=== PATIENT | male | born 1965 | race Caucasian/White ===

== ENCOUNTER 2017-11-01 20:44 | Inpatient (IN) | payer OTHER, MEDICAID ==
[~2017-11-01] VITALS: Ht 175.3 cm; Wt 110.2 kg
[~2017-11-01 20:44] MED LIST: ALBU8.5H5 INH; AMOX-367 PO; ATEN25TA PO; ATENOLOL PO; CLON0.5T PO; CLOR3.75 PO; COUMADIN PO; ENOX100S4 SQ; ENOX120S5 SQ; FLUO20CA19 PO; GABA600T PO; GABA600T2 PO; HCTZ; HYDR-3237 PO; HYDR-3241 PO; HYDR12.53 PO; LEVO750T6 PO; LISI-167 PO; LISI2.5T PO; LISINOPRIL PO; LORA-446 PO; METH4TAB2 PO; MORP-52 PO; MULT-87 PO; ONDA4TAB10 PO; OXYC-302 PO; OXYC-307 PO; RANI150T4 PO; RANI150T8 PO; SULF-169 PO; TAMS0.4C2 PO; WARF5TAB PO; WARF5TAB7 PO; WARF7.5T PO
[2017-11-01] MEDS ORDERED: HYDROmorphone 2 MG/ML, 1ML ONE (21:12)
[2017-11-01 21:13] LABS: HEMOGLOBIN 14.2 g/dL (13.7-18.0); WHITE BLOOD COUNT 6.4 x10^3/uL (3.4-10)
[2017-11-01 21:22] LABS: BLOOD UREA NITROGEN 20 mg/dL (7-18)
[2017-11-01 21:26] LABS: IS PT STATUS REG ER OR PRE ER? YES
[2017-11-01] MEDS ORDERED: HYDROmorphone 1 MG/ML, 1ML IV ONE (21:30)
[2017-11-01] MEDS ORDERED: OMNIPAQUE 350 MG/ML, 100ML BOTTLE ONE (23:39)
[2017-11-02] MEDS ORDERED: RIVAROXABAN 15 MG TABLET PO STA
[2017-11-02 02:23] VITALS: BP 146/96
[2017-11-02] MEDS ORDERED: Enoxaparin 1 mg/kg protocol SQ SCH (05:00)
[2017-11-02] MEDS ORDERED: ONDANSETRON ODT 4 MG PO PRN (05:00)
[2017-11-02] MEDS ORDERED: ACETAMINOPHEN 325 MG TABLET PO PRN (05:00)
[2017-11-02] MEDS ORDERED: ONDANSETRON 2MG/ML, 2ML IVPush PRN (05:00)
[2017-11-02] MEDS ORDERED: PROMETHAZINE 25 MG/ML, 1ML IM PRN (05:00)
[2017-11-02 05:10] LABS: DAU SCREEN DISCLAIMER
[2017-11-02] MEDS ORDERED: SODIUM CHLORIDE 0.9% 1,000 ML IV SCH (05:30)
[2017-11-02 05:37] LABS: HEMATOCRIT 39.7 % (39.2-51.8); HEMOGLOBIN 13.4 g/dL (13.7-18.0); WHITE BLOOD COUNT 4.9 x10^3/uL (3.4-10)
[2017-11-02 05:46] LABS: BLOOD UREA NITROGEN 16 mg/dL (7-18)
[2017-11-02 05:53] LABS: ASPARTATE AMINO TRANSFERASE 114 U/L (15-37)
[2017-11-02 05:56] LABS: IS PT STATUS REG ER OR PRE ER? NO
[2017-11-02] MEDS: SODIUM CHLORIDE 0.9% 1,000 ML IV SCH ×2 (06:29→11:45)
[2017-11-02 07:20] VITALS: BP 172/115
[2017-11-02] MEDS ORDERED: NITROGLYCERIN 0.4 MG BOTTLE (25 TABS) SL PRN (13:30)
[2017-11-02] MEDS ORDERED: POLYETHYLENE GLYCOL 17 GM PACKET PO PRN (13:30)
[2017-11-02] MEDS ORDERED: LABETALOL 5MG/ML, 20ML IVPush PRN (13:30)
[2017-11-02 13:33] VITALS: BP 158/89
[2017-11-02 13:36] LABS: IS PT STATUS REG ER OR PRE ER? NO
[2017-11-02] MEDS: OXYcodone/APAP 10/325MG TABLET PO PRN ×2 (13:36→20:28)
[2017-11-02] MEDS: LISINOPRIL 10 MG TABLET PO SCH (13:36)
[2017-11-02] MEDS: FLUOXETINE 20 MG CAPSULE PO SCH (13:36)
[2017-11-02] MEDS: GABAPENTIN 300 MG CAPSULE PO PRN ×2 (13:37→20:28)
[2017-11-02] MEDS: TAMSULOSIN 0.4 MG CAP.ER.24H PO SCH (13:37)
[2017-11-02] MEDS: NICOTINE 21 MG/24 HR PATCH.TD24 TD SCH (13:37)
[2017-11-02] MEDS ORDERED: LORazepam 2 MG/ML, 1ML IV PRN ×5 (14:00)
[2017-11-02] MEDS: RIVAROXABAN 15 MG TABLET PO SCH (17:32)
[2017-11-02 20:42] VITALS: BP 132/83
[2017-11-03 01:11] VITALS: BP 137/83
[2017-11-03] MEDS: OXYcodone/APAP 10/325MG TABLET PO PRN ×3 (03:05→15:02)
[2017-11-03] MEDS: GABAPENTIN 300 MG CAPSULE PO PRN ×3 (03:05→15:02)
[2017-11-03 06:39] LABS: ASPARTATE AMINO TRANSFERASE 99 U/L (15-37); BLOOD UREA NITROGEN 17 mg/dL (7-18)
[2017-11-03 08:49] VITALS: BP 156/100
[2017-11-03] MEDS: TAMSULOSIN 0.4 MG CAP.ER.24H PO SCH (08:54)
[2017-11-03] MEDS: NICOTINE 21 MG/24 HR PATCH.TD24 TD SCH (08:54)
[2017-11-03] MEDS: RIVAROXABAN 15 MG TABLET PO SCH (08:54)
[2017-11-03] MEDS: LISINOPRIL 10 MG TABLET PO SCH (08:55)
[2017-11-03] MEDS: FLUOXETINE 20 MG CAPSULE PO SCH (08:55)
[2017-11-03] MEDS ORDERED: HYDROCHLOROTHIAZIDE 12.5 MG CAPSULE PO SCH (09:00)
[2017-11-03] MEDS ORDERED: RIVA15TA PO (14:40)
[2017-11-03 15:02] VITALS: BP 148/90
== END 2017-11-03 17:27 | DRG 300 ==
LOC: ED 20:48 → EDIP 11-02 00:01 → 5SO 11-02 02:16
PROVIDERS: ADMIT Surgery; ATTEND Surgery
DX: I83.015 Varicose veins of right lower extremity with ulcer other part of foot (principal); F11.20 Opioid dependence, uncomplicated; N17.9 Acute kidney failure, unspecified; E11.22 Type 2 diabetes mellitus with diabetic chronic kidney disease; E11.51 Type 2 diabetes mellitus with diabetic peripheral angiopathy without gangrene; E11.622 Type 2 diabetes mellitus with other skin ulcer; I82.513 Chronic embolism and thrombosis of femoral vein, bilateral; B19.20 Unspecified viral hepatitis C without hepatic coma; F10.10 Alcohol abuse, uncomplicated; F15.10 Other stimulant abuse, uncomplicated; F17.210 Nicotine dependence, cigarettes, uncomplicated; F20.9 Schizophrenia, unspecified; F32.9 Major depressive disorder, single episode, unspecified; F41.1 Generalized anxiety disorder; F43.10 Post-traumatic stress disorder, unspecified; G89.29 Other chronic pain; I12.9 Hypertensive chronic kidney disease with stage 1 through stage 4 chronic kidney disease, or unspecified chronic kidney disease; I83.025 Varicose veins of left lower extremity with ulcer other part of foot; L97.511 Non-pressure chronic ulcer of other part of right foot limited to breakdown of skin; L97.521 Non-pressure chronic ulcer of other part of left foot limited to breakdown of skin; I25.10 Atherosclerotic heart disease of native coronary artery without angina pectoris; J44.9 Chronic obstructive pulmonary disease, unspecified; K21.9 Gastro-esophageal reflux disease without esophagitis; N18.9 Chronic kidney disease, unspecified; Z59.0 Homelessness; Z79.01 Long term (current) use of anticoagulants; Z79.899 Other long term (current) drug therapy; Z91.14 Patient's other noncompliance with medication regimen; Z88.8 Allergy status to other drugs, medicaments and biological substances
CPT/HCPCS: 36415; 71010; 71275; 80048; 80053; 80307; 81003; 82040; 83735; 83880; 84100; 84484; 85025; 85610; 93005; 93970; 96374; J1170; Q9967; G0479; J7030

== ENCOUNTER 2018-02-22 14:09 | Emergency (ER) | payer OTHER, MEDICAID ==
[~2018-02-22 14:09] MED LIST changes: +RIVA15TA PO; +WARF-36 PO; -WARF5TAB7 PO
== END 2018-02-22 15:55 | disposition home or self-care (01) ==
LOC: ED 15:00
DX: Z02.9 Encounter for administrative examinations, unspecified (principal)

== ENCOUNTER 2018-02-22 14:14 | Inpatient (IN) | payer MEDICAID, OTHER ==
[~2018-02-22] VITALS: Ht 175.3 cm; Wt 104.8 kg
[~2018-02-22 14:14] MED LIST changes: +RANI150T23 PO; -RANI150T8 PO
[2018-02-22] MEDS ORDERED: MORPHINE SULFATE 4 MG/ML, 1ML ONE ×2 (14:55→17:04)
[2018-02-22] MEDS ORDERED: ONDANSETRON ODT 4 MG ONE (14:55)
[2018-02-22] MEDS ORDERED: AMPICILLIN/SULBACTAM 3 GM IM ONE (15:00)
[2018-02-22] MEDS ORDERED: PLEASE ENTER HEIGHT AND WEIGHT MC SCH (15:00)
[2018-02-22] MEDS ORDERED: SODIUM CHLORIDE FLUSH 10ML SYR IVF ONE (15:00)
[2018-02-22] MEDS ORDERED: ONDANSETRON ODT 4 MG PO ONE (15:00)
[2018-02-22] MEDS ORDERED: VANCOMYCIN PER PHARMACY MC PRN ×2 (15:00→16:30)
[2018-02-22] MEDS: MORPHINE SULFATE 4 MG/ML, 1ML IVPush PRN ×2 (15:20→17:10)
[2018-02-22 15:25] LABS: BASOPHILS # (AUTO) 0.03 x10^3/uL (0-0.1); BASOPHILS % (AUTO) 0 % (0-1); EOSINOPHILS # (AUTO) 0.19 x10^3/uL (0-0.4); EOSINOPHILS % (AUTO) 3 % (1-7); LYMPHOCYTES # (AUTO) 1.61 x10^3/uL (1-3.4); LYMPHOCYTES % (AUTO) 25 % (22-44); MD NO; MEAN CORPUSCULAR HEMOGLOBIN 28.8 pg (27.5-34.5); MEAN CORPUSCULAR HGB CONC 32.6 g/dL (33.2-36.2); MEAN CORPUSCULAR VOLUME 88.3 fL (81-97); MEAN PLATELET VOLUME 7.9 fL (7.4-10.4); MONOCYTES # (AUTO) 0.54 x10^3/uL (0.2-0.8); MONOCYTES % (AUTO) 8 % (2-9); NEUTROPHILS # (AUTO) 4.08 x10^3/uL (1.8-6.8); NEUTROPHILS % (AUTO) 63 % (42-75); PLATELET COUNT 231 x10^3/uL (130-400); RED BLOOD COUNT 4.37 x10^6/uL (4.38-5.82); RED CELL DISTRIBUTION WIDTH 17.1 % (9.4-14.8)
[2018-02-22 15:35] LABS: CALCIUM 8.6 mg/dL (8.5-10.1); CHLORIDE 106 mmol/L (98-107)
[2018-02-22 15:43] LABS: ALBUMIN 3.2 g/dL (3.4-5.0); ANION GAP 7 mmol/L (5-15); CREATININE 0.95 mg/dL (0.7-1.3)
[2018-02-22] MEDS ORDERED: DOCUSATE 100 MG CAPSULE PO PRN (16:30)
[2018-02-22] MEDS ORDERED: BISACODYL 10 MG SUPP PR PRN (16:30)
[2018-02-22] MEDS ORDERED: POLYETHYLENE GLYCOL 17 GM PACKET PO PRN (16:30)
[2018-02-22] MEDS ORDERED: ONDANSETRON ODT 4 MG PO PRN (16:30)
[2018-02-22] MEDS ORDERED: ACETAMINOPHEN 325 MG TABLET PO PRN (16:30)
[2018-02-22] MEDS: RIVAROXABAN 15 MG TABLET PO SCH (17:00)
[2018-02-22] MEDS: AMPICILLIN/SULBACTAM 3 GM in SODIUM CHLORIDE 0.9% 100 ML IV SCH (17:09)
[2018-02-22] MEDS ORDERED: RIVAROXABAN 10 MG TABLET ONE (17:28)
[2018-02-22 17:49] LABS: HCT (SEDRATE) 38.6 % (39.2-51.8)
[2018-02-22] MEDS ORDERED: LABETALOL 5MG/ML, 20ML ONE (19:06)
[2018-02-22] MEDS: LABETALOL 5MG/ML, 20ML IVPush PRN (19:13)
[2018-02-22] MEDS: NEED HEIGHT AND WEIGHT FOR VANCO DOSING MC SCH ×2 (20:30→21:30)
[2018-02-22] MEDS: SODIUM CHLORIDE FLUSH 10ML SYR IVF SCH (21:00)
[2018-02-22] MEDS ORDERED: PHARMACOKINETIC MONITORING MC PRN (22:00)
[2018-02-22] MEDS ORDERED: PHARMACOKINETIC CONSULTATION MC ONE (22:00)
[2018-02-22] MEDS: GABAPENTIN 300 MG CAPSULE PO PRN (22:18)
[2018-02-22] MEDS: VANCOMYCIN 2,000 MG in SODIUM CHLORIDE 0.9% 500 ML IV SCH (22:19)
[2018-02-22] MEDS ORDERED: LORazepam 1MG TABLET PO ONE (22:30)
[2018-02-22 23:13] VITALS: BP 138/103
[2018-02-22 23:33] LABS: AMPHETAMINE SCREEN, URINE Positive (Negative); BARBITURATE SCREEN, URINE Negative (Negative); BENZODIAZEPINE SCREEN, URINE Negative (Negative); CANNABINOID SCREEN, URINE Negative (Negative); COCAINE SCREEN, URINE Negative (Negative); METHADONE SCREEN, URINE Negative (Negative); OPIATE SCREEN, URINE Positive (Negative)
[2018-02-23] MEDS: AMPICILLIN/SULBACTAM 3 GM in SODIUM CHLORIDE 0.9% 100 ML IV SCH ×2 (01:06→09:17)
[2018-02-23] MEDS: LABETALOL 5MG/ML, 20ML IVPush PRN ×3 (01:06→11:11)
[2018-02-23 01:55] VITALS: BP 153/105
[2018-02-23 05:28] LABS: BASOPHILS # (AUTO) 0.03 x10^3/uL (0-0.1); BASOPHILS % (AUTO) 1 % (0-1); EOSINOPHILS # (AUTO) 0.19 x10^3/uL (0-0.4); EOSINOPHILS % (AUTO) 4 % (1-7); LYMPHOCYTES # (AUTO) 1.33 x10^3/uL (1-3.4); LYMPHOCYTES % (AUTO) 25 % (22-44); MD NO; MEAN CORPUSCULAR HEMOGLOBIN 28.7 pg (27.5-34.5); MEAN CORPUSCULAR HGB CONC 32.6 g/dL (33.2-36.2); MEAN CORPUSCULAR VOLUME 88.3 fL (81-97); MEAN PLATELET VOLUME 8.2 fL (7.4-10.4); MONOCYTES # (AUTO) 0.51 x10^3/uL (0.2-0.8); MONOCYTES % (AUTO) 10 % (2-9); NEUTROPHILS # (AUTO) 3.25 x10^3/uL (1.8-6.8); NEUTROPHILS % (AUTO) 61 % (42-75); PLATELET COUNT 246 x10^3/uL (130-400); RED BLOOD COUNT 4.43 x10^6/uL (4.38-5.82); RED CELL DISTRIBUTION WIDTH 16.9 % (9.4-14.8)
[2018-02-23 05:36] LABS: ANION GAP 7 mmol/L (5-15); CALCIUM 8.5 mg/dL (8.5-10.1); CHLORIDE 108 mmol/L (98-107)
[2018-02-23 05:37] LABS: CREATININE 1.11 mg/dL (0.7-1.3)
[2018-02-23] MEDS: NICOTINE 21 MG/24 HR PATCH.TD24 TD SCH (09:00)
[2018-02-23 09:15] VITALS: BP 180/116
[2018-02-23] MEDS: FLUOXETINE HCL 20 MG CAPSULE PO SCH (09:17)
[2018-02-23] MEDS: TAMSULOSIN 0.4 MG CAP.ER.24H PO SCH (09:18)
[2018-02-23] MEDS: HYDROCHLOROTHIAZIDE 12.5 MG CAPSULE PO SCH (09:18)
[2018-02-23] MEDS: GABAPENTIN 300 MG CAPSULE PO PRN (09:18)
[2018-02-23] MEDS: LISINOPRIL 20 MG TABLET PO SCH (09:18)
[2018-02-23] MEDS: RIVAROXABAN 15 MG TABLET PO SCH ×2 (09:18→17:11)
[2018-02-23] MEDS: SODIUM CHLORIDE FLUSH 10ML SYR IVF SCH ×2 (09:19→21:00)
[2018-02-23 11:14] VITALS: BP 182/116
[2018-02-23] MEDS: PIPERACILLIN/TAZO/PMX 3.375GM 50 ML IV SCH ×3 (11:43→20:56)
[2018-02-23] MEDS: MUPIROCIN OINT 2%, 22GM TP SCH (11:43)
[2018-02-23] MEDS ORDERED: GABAPENTIN 300 MG CAPSULE PO SCH (12:30)
[2018-02-23 14:50] VITALS: BP 160/116
[2018-02-23] MEDS ORDERED: GADOBUTROL 10 MMOL/10 ML PFS ONE (14:52)
[2018-02-23] MEDS: HYDROcodone/APAP 5/325 TABLET PO PRN (15:12)
[2018-02-23] MEDS ORDERED: LORazepam 1MG TABLET PO PRN ×3 (16:30)
[2018-02-23] MEDS ORDERED: IBUPROFEN 200 MG TABLET PO PRN (16:30)
[2018-02-23] MEDS: VANCOMYCIN 2,000 MG in SODIUM CHLORIDE 0.9% 500 ML IV SCH (17:07)
[2018-02-23 17:17] VITALS: BP 156/118
[2018-02-23] MEDS ORDERED: MORPHINE SULFATE 4 MG/ML, 1ML ONE (17:52)
[2018-02-23] MEDS: hydrALAzine 20 MG/ML, 1ML IV PRN (17:59)
[2018-02-23] MEDS: CARVEDILOL 3.125 MG TABLET PO SCH (18:00)
[2018-02-23] MEDS: GABAPENTIN 300 MG CAPSULE PO SCH ×2 (18:00→23:57)
[2018-02-23] MEDS: MORPHINE SULFATE 4 MG/ML, 1ML IVPush PRN (18:00)
[2018-02-23] MEDS: LORazepam 1MG TABLET PO PRN (18:00)
[2018-02-23 18:59] VITALS: BP 109/68
[2018-02-23] MEDS: ATORVASTATIN 40 MG TABLET PO SCH (23:57)
[2018-02-24 00:59] VITALS: BP 144/86
[2018-02-24] MEDS: PIPERACILLIN/TAZO/PMX 3.375GM 50 ML IV SCH ×2 (03:29→09:35)
[2018-02-24] MEDS: CARVEDILOL 3.125 MG TABLET PO SCH ×2 (04:50→17:11)
[2018-02-24] MEDS: HYDROcodone/APAP 5/325 TABLET PO PRN ×3 (04:50→22:55)
[2018-02-24] MEDS: LORazepam 1MG TABLET PO PRN (05:00)
[2018-02-24 08:11] VITALS: BP 143/92
[2018-02-24] MEDS: NICOTINE 21 MG/24 HR PATCH.TD24 TD SCH (09:00)
[2018-02-24] MEDS: RIVAROXABAN 15 MG TABLET PO SCH ×2 (09:36→17:11)
[2018-02-24] MEDS: FLUOXETINE HCL 20 MG CAPSULE PO SCH (09:36)
[2018-02-24] MEDS: GABAPENTIN 300 MG CAPSULE PO SCH ×3 (09:36→20:13)
[2018-02-24] MEDS: TAMSULOSIN 0.4 MG CAP.ER.24H PO SCH (09:36)
[2018-02-24] MEDS: SODIUM CHLORIDE FLUSH 10ML SYR IVF SCH ×2 (09:37→20:07)
[2018-02-24] MEDS: HYDROCHLOROTHIAZIDE 12.5 MG CAPSULE PO SCH (09:38)
[2018-02-24] MEDS: MORPHINE SULFATE 4 MG/ML, 1ML IVPush PRN (09:38)
[2018-02-24] MEDS: LISINOPRIL 20 MG TABLET PO SCH (09:39)
[2018-02-24] MEDS: MUPIROCIN OINT 2%, 22GM TP SCH (12:05)
[2018-02-24 18:41] VITALS: BP 183/129
[2018-02-24] MEDS: hydrALAzine 20 MG/ML, 1ML IV PRN (20:07)
[2018-02-24] MEDS: ATORVASTATIN 40 MG TABLET PO SCH (20:07)
[2018-02-24] MEDS: SULFAMETH./TRIMETHOPRIM DS 800MG/160MG TABLET PO SCH (20:07)
[2018-02-24 20:17] VITALS: BP 156/98
[2018-02-25 01:05] VITALS: BP 170/114
[2018-02-25] MEDS: HYDROcodone/APAP 5/325 TABLET PO PRN ×3 (01:22→22:41)
[2018-02-25] MEDS: LORazepam 1MG TABLET PO PRN ×2 (01:22→22:41)
[2018-02-25 03:00] VITALS: BP 150/92
[2018-02-25] MEDS: CARVEDILOL 3.125 MG TABLET PO SCH ×2 (06:00→17:51)
[2018-02-25 08:00] VITALS: BP 184/83
[2018-02-25] MEDS: RIVAROXABAN 15 MG TABLET PO SCH ×3 (08:00→17:51)
[2018-02-25] MEDS ORDERED: ALBUTEROL/IPRATROPIUM 2.5MG/0.5MG, 3 ML NPPB PRN (08:30)
[2018-02-25] MEDS: TAMSULOSIN 0.4 MG CAP.ER.24H PO SCH (09:00)
[2018-02-25] MEDS: MUPIROCIN OINT 2%, 22GM TP SCH (09:00)
[2018-02-25] MEDS: LISINOPRIL 20 MG TABLET PO SCH ×2 (09:00→12:29)
[2018-02-25] MEDS: NICOTINE 21 MG/24 HR PATCH.TD24 TD SCH (09:00)
[2018-02-25] MEDS: HYDROCHLOROTHIAZIDE 12.5 MG CAPSULE PO SCH ×2 (10:27→12:28)
[2018-02-25] MEDS: SULFAMETH./TRIMETHOPRIM DS 800MG/160MG TABLET PO SCH ×2 (10:27→22:41)
[2018-02-25] MEDS: FLUOXETINE HCL 20 MG CAPSULE PO SCH (10:28)
[2018-02-25] MEDS: SODIUM CHLORIDE FLUSH 10ML SYR IVF SCH ×2 (10:28→22:45)
[2018-02-25] MEDS: ACETAMINOPHEN 325 MG TABLET PO PRN ×2 (10:28→17:51)
[2018-02-25] MEDS: GABAPENTIN 300 MG CAPSULE PO SCH ×3 (10:28→22:40)
[2018-02-25 14:00] VITALS: BP 174/115
[2018-02-25] MEDS: LIDODERM 5% PATCH TD SCH (17:51)
[2018-02-25 18:23] VITALS: BP 173/101
[2018-02-25] MEDS: ATORVASTATIN 40 MG TABLET PO SCH (22:41)
[2018-02-26 03:23] VITALS: BP 164/107
[2018-02-26 04:15] VITALS: BP 176/101
[2018-02-26] MEDS: LABETALOL 5MG/ML, 20ML IVPush PRN (04:46)
[2018-02-26 05:55] VITALS: BP 141/86
[2018-02-26] MEDS: CARVEDILOL 3.125 MG TABLET PO SCH ×2 (06:09→17:36)
[2018-02-26 07:16] VITALS: BP 167/125
[2018-02-26] MEDS: GABAPENTIN 300 MG CAPSULE PO SCH ×3 (08:58→21:01)
[2018-02-26] MEDS: HYDROCHLOROTHIAZIDE 12.5 MG CAPSULE PO SCH (08:58)
[2018-02-26] MEDS: SULFAMETH./TRIMETHOPRIM DS 800MG/160MG TABLET PO SCH ×2 (08:59→21:01)
[2018-02-26] MEDS: LISINOPRIL 20 MG TABLET PO SCH (08:59)
[2018-02-26] MEDS: RIVAROXABAN 15 MG TABLET PO SCH ×2 (08:59→17:36)
[2018-02-26] MEDS: TAMSULOSIN 0.4 MG CAP.ER.24H PO SCH (08:59)
[2018-02-26] MEDS: FLUOXETINE HCL 20 MG CAPSULE PO SCH (08:59)
[2018-02-26] MEDS: SODIUM CHLORIDE FLUSH 10ML SYR IVF SCH ×2 (09:00→21:04)
[2018-02-26] MEDS: NICOTINE 21 MG/24 HR PATCH.TD24 TD SCH (09:00)
[2018-02-26] MEDS: MUPIROCIN OINT 2%, 22GM TP SCH (09:01)
[2018-02-26] MEDS: CYCLOBENZAPRINE 10 MG TABLET PO SCH ×2 (11:59→21:04)
[2018-02-26] MEDS ORDERED: KETOROLAC 30 MG/1 ML IVPush SCH (12:00)
[2018-02-26] MEDS: ACETAMINOPHEN 325 MG TABLET PO PRN (13:15)
[2018-02-26 13:30] VITALS: BP 160/117
[2018-02-26] MEDS ORDERED: KETOROLAC 10MG TABLET PO SCH (16:00)
[2018-02-26] MEDS: KETOROLAC 10MG TABLET PO SCH ×3 (17:36→23:24)
[2018-02-26] MEDS: LIDODERM 5% PATCH TD SCH (17:37)
[2018-02-26 20:38] VITALS: BP 144/84
[2018-02-26] MEDS: ATORVASTATIN 40 MG TABLET PO SCH (21:01)
[2018-02-26] MEDS: HYDROcodone/APAP 5/325 TABLET PO PRN (21:01)
[2018-02-26] MEDS: LORazepam 0.5MG TABLET PO PRN (21:01)
[2018-02-27 00:29] VITALS: BP 147/95
[2018-02-27] MEDS: LORazepam 0.5MG TABLET PO PRN (02:02)
[2018-02-27] MEDS: CARVEDILOL 3.125 MG TABLET PO SCH ×2 (06:32→18:21)
[2018-02-27 06:51] VITALS: BP 170/101
[2018-02-27] MEDS: NICOTINE 21 MG/24 HR PATCH.TD24 TD SCH (09:00)
[2018-02-27] MEDS: TAMSULOSIN 0.4 MG CAP.ER.24H PO SCH (09:33)
[2018-02-27] MEDS: GABAPENTIN 300 MG CAPSULE PO SCH ×3 (09:33→20:36)
[2018-02-27] MEDS: RIVAROXABAN 15 MG TABLET PO SCH ×2 (09:34→18:20)
[2018-02-27] MEDS: LISINOPRIL 20 MG TABLET PO SCH (09:34)
[2018-02-27] MEDS: FLUOXETINE HCL 20 MG CAPSULE PO SCH (09:34)
[2018-02-27] MEDS: HYDROCHLOROTHIAZIDE 12.5 MG CAPSULE PO SCH (09:34)
[2018-02-27] MEDS: KETOROLAC 10MG TABLET PO SCH ×3 (09:34→20:36)
[2018-02-27] MEDS: CYCLOBENZAPRINE 10 MG TABLET PO SCH ×2 (09:34→20:35)
[2018-02-27] MEDS: SODIUM CHLORIDE FLUSH 10ML SYR IVF SCH ×3 (09:35→20:39)
[2018-02-27] MEDS: MUPIROCIN OINT 2%, 22GM TP SCH (09:36)
[2018-02-27] MEDS: SULFAMETH./TRIMETHOPRIM DS 800MG/160MG TABLET PO SCH ×2 (09:47→20:36)
[2018-02-27 12:00] VITALS: BP 147/107
[2018-02-27] MEDS ORDERED: LISINOPRIL 20 MG TABLET PO ONE (12:30)
[2018-02-27] MEDS: HYDROcodone/APAP 5/325 TABLET PO PRN ×2 (14:03→21:59)
[2018-02-27] MEDS: LIDODERM 5% PATCH TD SCH (18:25)
[2018-02-27 18:59] VITALS: BP 149/98
[2018-02-27] MEDS: ATORVASTATIN 40 MG TABLET PO SCH (20:35)
[2018-02-28 01:14] VITALS: BP 134/83
[2018-02-28] MEDS: ACETAMINOPHEN 325 MG TABLET PO PRN (02:36)
[2018-02-28 05:25] VITALS: BP 163/88
[2018-02-28] MEDS: CARVEDILOL 3.125 MG TABLET PO SCH ×3 (05:25→18:16)
[2018-02-28 07:20] VITALS: BP 142/85
[2018-02-28] MEDS: RIVAROXABAN 15 MG TABLET PO SCH ×2 (08:00→16:06)
[2018-02-28] MEDS: SODIUM CHLORIDE FLUSH 10ML SYR IVF SCH ×2 (08:55→19:17)
[2018-02-28] MEDS: CYCLOBENZAPRINE 10 MG TABLET PO SCH ×2 (08:56→20:25)
[2018-02-28] MEDS: TAMSULOSIN 0.4 MG CAP.ER.24H PO SCH (08:57)
[2018-02-28] MEDS: GABAPENTIN 300 MG CAPSULE PO SCH ×3 (08:57→20:25)
[2018-02-28] MEDS: FLUOXETINE HCL 20 MG CAPSULE PO SCH (08:58)
[2018-02-28] MEDS: LISINOPRIL 20 MG TABLET PO SCH (08:58)
[2018-02-28] MEDS: SULFAMETH./TRIMETHOPRIM DS 800MG/160MG TABLET PO SCH ×2 (08:58→20:24)
[2018-02-28] MEDS: HYDROcodone/APAP 5/325 TABLET PO PRN ×2 (08:58→21:21)
[2018-02-28] MEDS: KETOROLAC 10MG TABLET PO SCH ×3 (08:58→20:24)
[2018-02-28] MEDS: NICOTINE 21 MG/24 HR PATCH.TD24 TD SCH (08:59)
[2018-02-28] MEDS: HYDROCHLOROTHIAZIDE 12.5 MG CAPSULE PO SCH (09:00)
[2018-02-28] MEDS: MUPIROCIN OINT 2%, 22GM TP SCH (09:05)
[2018-02-28 13:40] VITALS: BP 143/101
[2018-02-28] MEDS ORDERED: CALCIUM CARBONATE 500 MG TAB.CHEW ONE (15:56)
[2018-02-28] MEDS ORDERED: CALCIUM CARBONATE 500 MG TAB.CHEW PO PRN (16:00)
[2018-02-28] MEDS: LIDODERM 5% PATCH TD SCH (16:03)
[2018-02-28] MEDS ORDERED: ALPRazolam 1MG TABLET PO ONE (18:30)
[2018-02-28 19:16] VITALS: BP 128/86
[2018-02-28] MEDS: ATORVASTATIN 40 MG TABLET PO SCH (20:24)
[2018-03-01 01:34] VITALS: BP 123/78
[2018-03-01 05:01] VITALS: BP 127/86
[2018-03-01] MEDS: CARVEDILOL 3.125 MG TABLET PO SCH ×2 (05:23→17:32)
[2018-03-01 07:59] VITALS: BP 128/83
[2018-03-01] MEDS: NICOTINE 21 MG/24 HR PATCH.TD24 TD SCH (09:00)
[2018-03-01] MEDS: SODIUM CHLORIDE FLUSH 10ML SYR IVF SCH ×2 (09:00→20:48)
[2018-03-01] MEDS: LISINOPRIL 20 MG TABLET PO SCH (10:21)
[2018-03-01] MEDS: GABAPENTIN 300 MG CAPSULE PO SCH ×3 (10:21→20:49)
[2018-03-01] MEDS: KETOROLAC 10MG TABLET PO SCH ×3 (10:21→20:49)
[2018-03-01] MEDS: TAMSULOSIN 0.4 MG CAP.ER.24H PO SCH (10:22)
[2018-03-01] MEDS: RIVAROXABAN 15 MG TABLET PO SCH ×2 (10:22→17:32)
[2018-03-01] MEDS: FLUOXETINE HCL 20 MG CAPSULE PO SCH (10:22)
[2018-03-01] MEDS: HYDROCHLOROTHIAZIDE 12.5 MG CAPSULE PO SCH (10:22)
[2018-03-01] MEDS: SULFAMETH./TRIMETHOPRIM DS 800MG/160MG TABLET PO SCH ×2 (10:23→20:50)
[2018-03-01] MEDS: CYCLOBENZAPRINE 10 MG TABLET PO SCH ×2 (10:23→20:49)
[2018-03-01] MEDS: MUPIROCIN OINT 2%, 22GM TP SCH (10:23)
[2018-03-01] MEDS: HYDROcodone/APAP 5/325 TABLET PO PRN (11:10)
[2018-03-01] MEDS: ACETAMINOPHEN 325 MG TABLET PO PRN ×2 (13:05→20:49)
[2018-03-01] MEDS: LIDODERM 5% PATCH TD SCH (17:36)
[2018-03-01 17:48] VITALS: BP 145/82
[2018-03-01 20:13] VITALS: BP 146/94
[2018-03-01] MEDS: OLANZAPINE 5 MG TABLET PO SCH (20:49)
[2018-03-01] MEDS: ATORVASTATIN 40 MG TABLET PO SCH (20:56)
[2018-03-02 02:14] VITALS: BP 141/83
[2018-03-02] MEDS: CARVEDILOL 3.125 MG TABLET PO SCH ×2 (05:14→16:54)
[2018-03-02 07:47] VITALS: BP 131/88
[2018-03-02] MEDS: RIVAROXABAN 15 MG TABLET PO SCH ×3 (08:31→17:00)
[2018-03-02] MEDS: KETOROLAC 10MG TABLET PO SCH ×3 (08:31→21:09)
[2018-03-02] MEDS: LISINOPRIL 20 MG TABLET PO SCH (08:31)
[2018-03-02] MEDS: CYCLOBENZAPRINE 10 MG TABLET PO SCH ×2 (08:32→19:52)
[2018-03-02] MEDS: TAMSULOSIN 0.4 MG CAP.ER.24H PO SCH (08:32)
[2018-03-02] MEDS: SODIUM CHLORIDE FLUSH 10ML SYR IVF SCH (09:00)
[2018-03-02] MEDS: NICOTINE 21 MG/24 HR PATCH.TD24 TD SCH (09:00)
[2018-03-02] MEDS: MUPIROCIN OINT 2%, 22GM TP SCH (09:00)
[2018-03-02] MEDS: HYDROCHLOROTHIAZIDE 12.5 MG CAPSULE PO SCH (09:00)
[2018-03-02] MEDS: GABAPENTIN 300 MG CAPSULE PO SCH ×3 (09:00→21:09)
[2018-03-02] MEDS: SULFAMETH./TRIMETHOPRIM DS 800MG/160MG TABLET PO SCH ×2 (09:00→19:52)
[2018-03-02] MEDS: ACETAMINOPHEN 325 MG TABLET PO PRN ×2 (11:16→21:10)
[2018-03-02 14:00] VITALS: BP 148/78
[2018-03-02] MEDS: LIDODERM 5% PATCH TD SCH ×2 (16:54→17:00)
[2018-03-02 19:02] VITALS: BP 152/92
[2018-03-02] MEDS: OLANZAPINE 5 MG TABLET PO SCH (19:52)
[2018-03-02] MEDS: ATORVASTATIN 40 MG TABLET PO SCH (19:52)
[2018-03-03 05:10] VITALS: BP 153/86
[2018-03-03] MEDS: CARVEDILOL 3.125 MG TABLET PO SCH ×2 (05:14→17:20)
[2018-03-03] MEDS: NICOTINE 21 MG/24 HR PATCH.TD24 TD SCH (09:00)
[2018-03-03] MEDS: MUPIROCIN OINT 2%, 22GM TP SCH (09:00)
[2018-03-03 09:22] VITALS: BP 142/91
[2018-03-03] MEDS: RIVAROXABAN 15 MG TABLET PO SCH ×2 (09:23→17:20)
[2018-03-03] MEDS: LISINOPRIL 20 MG TABLET PO SCH (09:24)
[2018-03-03] MEDS: GABAPENTIN 300 MG CAPSULE PO SCH ×3 (09:24→21:14)
[2018-03-03] MEDS: TAMSULOSIN 0.4 MG CAP.ER.24H PO SCH (09:25)
[2018-03-03] MEDS: CYCLOBENZAPRINE 10 MG TABLET PO SCH ×2 (09:25→21:14)
[2018-03-03] MEDS: SULFAMETH./TRIMETHOPRIM DS 800MG/160MG TABLET PO SCH ×2 (09:26→21:13)
[2018-03-03] MEDS: HYDROcodone/APAP 5/325 TABLET PO PRN ×2 (14:58→21:54)
[2018-03-03 15:00] VITALS: BP 141/78
[2018-03-03] MEDS: LIDODERM 5% PATCH TD SCH (16:40)
[2018-03-03 19:57] VITALS: BP 109/70
[2018-03-03] MEDS: ATORVASTATIN 40 MG TABLET PO SCH (21:14)
[2018-03-03] MEDS: OLANZAPINE 5 MG TABLET PO SCH (21:15)
[2018-03-04 02:00] VITALS: BP 145/80
[2018-03-04] MEDS: CARVEDILOL 3.125 MG TABLET PO SCH ×2 (06:00→17:03)
[2018-03-04 06:37] VITALS: BP 126/76
[2018-03-04] MEDS: LISINOPRIL 20 MG TABLET PO SCH (08:25)
[2018-03-04] MEDS: TAMSULOSIN 0.4 MG CAP.ER.24H PO SCH (08:26)
[2018-03-04] MEDS: CYCLOBENZAPRINE 10 MG TABLET PO SCH (08:26)
[2018-03-04] MEDS: RIVAROXABAN 15 MG TABLET PO SCH ×2 (08:26→17:02)
[2018-03-04] MEDS: GABAPENTIN 300 MG CAPSULE PO SCH ×3 (08:26→20:46)
[2018-03-04] MEDS: MUPIROCIN OINT 2%, 22GM TP SCH (08:27)
[2018-03-04 13:22] VITALS: BP 130/83
[2018-03-04] MEDS ORDERED: HYDROcodone/APAP 5/325 TABLET PO PRN (17:00)
[2018-03-04] MEDS: LIDODERM 5% PATCH TD SCH (17:02)
[2018-03-04 19:39] VITALS: BP 130/80
[2018-03-04] MEDS: ACETAMINOPHEN 325 MG TABLET PO PRN (20:47)
[2018-03-04] MEDS: OLANZAPINE 5 MG TABLET PO SCH (20:47)
[2018-03-05 02:00] VITALS: BP 135/86
[2018-03-05] MEDS: CARVEDILOL 3.125 MG TABLET PO SCH (06:00)
[2018-03-05 07:11] VITALS: BP 172/104
[2018-03-05] MEDS ORDERED: RIVAROXABAN 20 MG TABLET PO SCH (08:00)
[2018-03-05] MEDS ORDERED: RIVA20TA PO (08:27)
[2018-03-05] MEDS ORDERED: LISI-170 PO (08:27)
[2018-03-05] MEDS ORDERED: MUPI22OI2 TP (08:27)
[2018-03-05] MEDS ORDERED: OLAN5TAB9 PO (08:27)
[2018-03-05 08:30] VITALS: BP 136/87
[2018-03-05] MEDS: MUPIROCIN OINT 2%, 22GM TP SCH (08:30)
[2018-03-05] MEDS: GABAPENTIN 300 MG CAPSULE PO SCH (08:30)
[2018-03-05] MEDS: LISINOPRIL 20 MG TABLET PO SCH (08:39)
[2018-03-05] MEDS: TAMSULOSIN 0.4 MG CAP.ER.24H PO SCH (08:39)
[2018-03-05] MEDS ORDERED: CARVEDILOL 3.125 MG TABLET PO SCH (09:00)
== END 2018-03-05 12:55 | disposition home or self-care (01) | DRG 602 ==
LOC: ED 14:16 → EDIP 16:16 → 4WST 20:22
PROVIDERS: ADMIT Internal Medicine; ATTEND Internal Medicine
DX: L03.116 Cellulitis of left lower limb (principal); I26.99 Other pulmonary embolism without acute cor pulmonale; I50.43 Acute on chronic combined systolic (congestive) and diastolic (congestive) heart failure; D68.59 Other primary thrombophilia; E11.42 Type 2 diabetes mellitus with diabetic polyneuropathy; E11.622 Type 2 diabetes mellitus with other skin ulcer; E44.1 Mild protein-calorie malnutrition; F23 Brief psychotic disorder; L97.929 Non-pressure chronic ulcer of unspecified part of left lower leg with unspecified severity; I82.532 Chronic embolism and thrombosis of left popliteal vein; I87.2 Venous insufficiency (chronic) (peripheral); I11.0 Hypertensive heart disease with heart failure; L03.115 Cellulitis of right lower limb; F17.210 Nicotine dependence, cigarettes, uncomplicated; I25.10 Atherosclerotic heart disease of native coronary artery without angina pectoris; K21.9 Gastro-esophageal reflux disease without esophagitis; J44.9 Chronic obstructive pulmonary disease, unspecified; L30.9 Dermatitis, unspecified; H91.90 Unspecified hearing loss, unspecified ear; G89.29 Other chronic pain; F41.1 Generalized anxiety disorder; F15.10 Other stimulant abuse, uncomplicated; D64.9 Anemia, unspecified; F19.10 Other psychoactive substance abuse, uncomplicated; M19.90 Unspecified osteoarthritis, unspecified site; M54.9 Dorsalgia, unspecified; M54.2 Cervicalgia; Z91.19 Patient's noncompliance with other medical treatment and regimen; Z87.442 Personal history of urinary calculi; Z59.0 Homelessness; Z86.711 Personal history of pulmonary embolism; Z91.14 Patient's other noncompliance with medication regimen; Z79.01 Long term (current) use of anticoagulants; Z76.5 Malingerer [conscious simulation]; Z88.8 Allergy status to other drugs, medicaments and biological substances; Z68.34 Body mass index [BMI] 34.0-34.9, adult
CPT/HCPCS: 36415; 80048; 80307; 82040; 83880; 85025; 85651; 86480; 87070; 87077; 87147; 87186; 87205; 93306; 93922; 93970; 94640; 96374; 96376; A9585; J0295; J2543; J3370; J7620; 92523-GN; J0360; J7040

== ENCOUNTER 2018-04-20 19:57 | Emergency (ER) | payer MEDICAID ==
[~2018-04-20] VITALS: Ht 175.3 cm; Wt 87.0 kg
[~2018-04-20 19:57] MED LIST changes: +LISI-170 PO; +MUPI22OI2 TP; +OLAN5TAB9 PO; +RIVA20TA PO
[2018-04-20 21:49] LABS: BASOPHILS # (AUTO) 0.03 x10^3/uL (0-0.1); BASOPHILS % (AUTO) 1 % (0-1); EOSINOPHILS # (AUTO) 0.32 x10^3/uL (0-0.4); EOSINOPHILS % (AUTO) 5 % (1-7); LYMPHOCYTES # (AUTO) 1.39 x10^3/uL (1-3.4); LYMPHOCYTES % (AUTO) 22 % (22-44); MD NO; MEAN CORPUSCULAR HEMOGLOBIN 28.8 pg (27.5-34.5); MEAN CORPUSCULAR HGB CONC 32.2 g/dL (33.2-36.2); MEAN CORPUSCULAR VOLUME 89.4 fL (81-97); MEAN PLATELET VOLUME 8.3 fL (7.4-10.4); MONOCYTES # (AUTO) 0.59 x10^3/uL (0.2-0.8); MONOCYTES % (AUTO) 10 % (2-9); NEUTROPHILS # (AUTO) 3.86 x10^3/uL (1.8-6.8); NEUTROPHILS % (AUTO) 63 % (42-75); PLATELET COUNT 222 x10^3/uL (130-400); RED BLOOD COUNT 4.31 x10^6/uL (4.38-5.82); RED CELL DISTRIBUTION WIDTH 19.1 % (9.4-14.8)
[2018-04-20 22:01] LABS: ALBUMIN 3.4 g/dL (3.4-5.0); ANION GAP 8 mmol/L (5-15); CALCIUM 8.6 mg/dL (8.5-10.1); CHLORIDE 109 mmol/L (98-107); CREATININE 1.25 mg/dL (0.7-1.3)
[2018-04-20] MEDS ORDERED: SULFAMETH./TRIMETHOPRIM DS 800MG/160MG TABLET PO ONE (22:30)
[2018-04-20] MEDS ORDERED: SULFAMETH./TRIMETHOPRIM DS 800MG/160MG TABLET ONE (22:32)
[2018-04-20 22:44] VITALS: BP 153/86
== END 2018-04-20 22:46 | disposition home or self-care (01) ==
LOC: ED 22:39
DX: I83.12 Varicose veins of left lower extremity with inflammation (principal); I83.11 Varicose veins of right lower extremity with inflammation; L03.115 Cellulitis of right lower limb; I10 Essential (primary) hypertension; E11.9 Type 2 diabetes mellitus without complications; J44.9 Chronic obstructive pulmonary disease, unspecified; I25.10 Atherosclerotic heart disease of native coronary artery without angina pectoris; K21.9 Gastro-esophageal reflux disease without esophagitis; F41.1 Generalized anxiety disorder; M54.9 Dorsalgia, unspecified; G89.29 Other chronic pain; Z59.0 Homelessness
CPT/HCPCS: 36415; 80048; 82040; 85025; 99285

== ENCOUNTER 2018-08-15 18:29 | Inpatient (IN) | payer MEDICAID ==
[~2018-08-15] VITALS: Ht 170.2 cm; Wt 106.5 kg
[2018-08-15 19:44] LABS: ALANINE AMINOTRANSFERASE 21 U/L (12-78); ALBUMIN 3.4 g/dL (3.4-5.0); ANION GAP 10 mmol/L (5-15); CALCIUM 8.3 mg/dL (8.5-10.1); CHLORIDE 103 mmol/L (98-107); CREATININE 1.04 mg/dL (0.7-1.3); SALICYLATE LEVEL 1.8 mg/dL (2.8-20.0)
[2018-08-15 19:46] LABS: ALKALINE PHOSPHATASE 76 U/L (45-117); BILIRUBIN,TOTAL 0.6 mg/dL (0.2-1.0); TOTAL PROTEIN 7.8 g/dL (6.4-8.2)
[2018-08-15 19:49] LABS: ACETAMINOPHEN < 2 mcg/mL (10-30)
[2018-08-15] MEDS ORDERED: ACETAMINOPHEN 325 MG TABLET ONE (19:49)
[2018-08-15 19:55] LABS: MD YES; MEAN CORPUSCULAR HEMOGLOBIN 30.8 pg (27.5-34.5); MEAN CORPUSCULAR HGB CONC 33.1 g/dL (33.2-36.2); MEAN CORPUSCULAR VOLUME 92.9 fL (81-97); MEAN PLATELET VOLUME 8.3 fL (7.4-10.4); PLATELET COUNT 172 x10^3/uL (130-400); RED BLOOD COUNT 4.64 x10^6/uL (4.38-5.82); RED CELL DISTRIBUTION WIDTH 17.1 % (9.4-14.8)
[2018-08-15 19:57] LABS: BAND#(MANUAL) 1.64 x10^3/uL; BANDS%(MANUAL) 8 % (0-7); SEG#(MANUAL) 17.84 x10^3/uL (1.8-6.8); SEGS% (MANUAL) 87 % (42-75)
[2018-08-15 19:58] LABS: LYMPH#(MANUAL) 0.62 x10^3/uL (1-3.4); LYMPHS% (MANUAL) 3 % (22-44); MONOS#(MANUAL) 0.41 x10^3/uL (0.3-2.7); MONOS% (MANUAL) 2 % (2-9)
[2018-08-15 19:59] LABS: HYPOCHROMIA 1+; OVALOCYTES 1+; PMNS WITH VACUOLES 1+
[2018-08-15 20:00] LABS: <PLATELET ESTIMATE> ADEQUATE; <PLT MORPHOLOGY> NORMAL PLT MORPH
[2018-08-15] MEDS ORDERED: ACETAMINOPHEN 325 MG TABLET PO ONE (20:00)
[2018-08-15 20:23] LABS: MICROSCOPIC AUTO
[2018-08-15 20:24] LABS: CULTURE INDICATED? NO
[2018-08-15] MEDS ORDERED: SODIUM CHLORIDE 0.9% 1,000ML IVBOLUS ONE (20:30)
[2018-08-15] MEDS ORDERED: CEFTRIAXONE PMX 1GM/50ML 50 ML ONE (20:36)
[2018-08-15 20:37] LABS: AMPHETAMINE SCREEN, URINE Positive (Negative); BARBITURATE SCREEN, URINE Negative (Negative); BENZODIAZEPINE SCREEN, URINE Negative (Negative); CANNABINOID SCREEN, URINE Positive (Negative); COCAINE SCREEN, URINE Negative (Negative); METHADONE SCREEN, URINE Negative (Negative); OPIATE SCREEN, URINE Negative (Negative)
[2018-08-15] MEDS ORDERED: CEFTRIAXONE 1,000 MG in SODIUM CHLORIDE 0.9% 50 ML IVPB ONE (21:00)
[2018-08-15] MEDS ORDERED: LORazepam 2 MG/ML, 1ML IVPush ONE (21:30)
[2018-08-15] MEDS ORDERED: hydrALAzine 20 MG/ML, 1ML IVPush PRN (21:30)
[2018-08-15] MEDS ORDERED: THIAMINE 100 MG in SODIUM CHLORIDE 0.9% 50 ML IVPB ONE (21:30)
[2018-08-15] MEDS ORDERED: POLYETHYLENE GLYCOL 17 GM PACKET PO PRN (21:30)
[2018-08-15] MEDS ORDERED: BISACODYL 10 MG SUPP PR PRN (21:30)
[2018-08-15] MEDS ORDERED: ONDANSETRON 2MG/ML, 2ML IVPush PRN (21:30)
[2018-08-15] MEDS ORDERED: DOCUSATE 100 MG CAPSULE PO PRN (21:30)
[2018-08-15] MEDS ORDERED: ONDANSETRON ODT 4 MG PO PRN (21:30)
[2018-08-15] MEDS ORDERED: LABETALOL 5MG/ML, 20ML IVPush PRN (21:30)
[2018-08-15] MEDS ORDERED: SODIUM CHLORIDE FLUSH 10ML SYR IVF PRN (21:30)
[2018-08-15] MEDS ORDERED: PROMETHAZINE 25 MG/ML, 1ML IM PRN (21:30)
[2018-08-15 22:00] VITALS: BP 128/76
[2018-08-15] MEDS ORDERED: VANCOMYCIN PER PHARMACY MC PRN (22:00)
[2018-08-15] MEDS ORDERED: VANCOMYCIN PMX 1GM/200ML 200 ML IV ONE (22:00)
[2018-08-15] MEDS ORDERED: SODIUM CHLORIDE 0.9% 1,000 ML IV SCH (22:00)
[2018-08-15 22:18] LABS: FREE T4 (FREE THYROXINE) 1.04 ng/dL (0.76-1.46); THYROID STIMULATING HORMONE 0.751 mIU/L (0.358-3.740)
[2018-08-15 22:58] LABS: HEMOGLOBIN A1C 5.6 % (4.2-6.3)
[2018-08-15] MEDS ORDERED: VANCOMYCIN 2,000 MG in SODIUM CHLORIDE 0.9% 500 ML IV ONE (23:00)
[2018-08-15] MEDS: AMPICILLIN/SULBACTAM 3 GM in SODIUM CHLORIDE 0.9% 100 ML IV SCH (23:42)
[2018-08-16 00:19] VITALS: BP 119/67
[2018-08-16] MEDS: METOPROLOL TARTRATE 25 MG TABLET PO SCH ×2 (04:59→18:38)
[2018-08-16 05:22] LABS: MEAN CORPUSCULAR HEMOGLOBIN 31.4 pg (27.5-34.5); MEAN CORPUSCULAR HGB CONC 33.6 g/dL (33.2-36.2); MEAN CORPUSCULAR VOLUME 93.3 fL (81-97); MEAN PLATELET VOLUME 8.4 fL (7.4-10.4); PLATELET COUNT 201 x10^3/uL (130-400); RED BLOOD COUNT 4.46 x10^6/uL (4.38-5.82); RED CELL DISTRIBUTION WIDTH 17.2 % (9.4-14.8)
[2018-08-16 05:34] LABS: CHLORIDE 105 mmol/L (98-107)
[2018-08-16 05:48] LABS: ALANINE AMINOTRANSFERASE 18 U/L (12-78); ALBUMIN 2.9 g/dL (3.4-5.0); ALKALINE PHOSPHATASE 64 U/L (45-117); ANION GAP 8 mmol/L (5-15); BILIRUBIN,TOTAL 0.9 mg/dL (0.2-1.0); CALCIUM 8.1 mg/dL (8.5-10.1); CHOL/HDL RATIO 1.3; CHOLESTEROL, TOTAL 92 mg/dL (140-239); CREATININE 1.03 mg/dL (0.7-1.3); HDL CHOL % 79 % (26-37); HDL CHOLESTEROL (DIRECT) 73 mg/dL (40-60); LDL CHOLESTEROL,CALCULATED 9 mg/dL (54-169); LDL/HDL RATIO 0.1 (0.5-3.0); TOTAL PROTEIN 7.1 g/dL (6.4-8.2); TRIGLYCERIDES 50 mg/dL (50-200); VLDL CHOLESTEROL 10 mg/dL (0-25)
[2018-08-16 06:24] LABS: MD YES
[2018-08-16 06:27] LABS: BAND#(MANUAL) 4.73 x10^3/uL; BANDS%(MANUAL) 18 % (0-7); LYMPH#(MANUAL) 1.32 x10^3/uL (1-3.4); LYMPHS% (MANUAL) 5 % (22-44); METAMYELOCYTES# (MANUAL) 0.53 x10^3/uL (0-0); METAMYELOCYTES% (MANUAL) 2 % (0-1); MONOS#(MANUAL) 0.53 x10^3/uL (0.3-2.7); MONOS% (MANUAL) 2 % (2-9); SEGS% (MANUAL) 73 % (42-75)
[2018-08-16 06:28] LABS: <PLATELET ESTIMATE> ADEQUATE; <PLT MORPHOLOGY> NORMAL PLT MORPH
[2018-08-16] MEDS: AMPICILLIN/SULBACTAM 3 GM in SODIUM CHLORIDE 0.9% 100 ML IV SCH ×3 (06:34→18:38)
[2018-08-16 07:38] VITALS: BP 120/72
[2018-08-16] MEDS: RIVAROXABAN 20 MG TABLET PO SCH (08:32)
[2018-08-16] MEDS: LOSARTAN 25MG TABLET PO SCH (08:32)
[2018-08-16] MEDS: ACETAMINOPHEN 325 MG TABLET PO PRN (08:33)
[2018-08-16] MEDS: VANCOMYCIN 2,000 MG in SODIUM CHLORIDE 0.9% 500 ML IV SCH (14:28)
[2018-08-16 16:09] VITALS: BP 127/76
[2018-08-16 19:47] VITALS: BP 144/82
[2018-08-17] MEDS: AMPICILLIN/SULBACTAM 3 GM in SODIUM CHLORIDE 0.9% 100 ML IV SCH ×4 (00:06→19:09)
[2018-08-17] MEDS: VANCOMYCIN 2,000 MG in SODIUM CHLORIDE 0.9% 500 ML IV SCH ×3 (02:17→17:18)
[2018-08-17 05:38] VITALS: BP 172/92
[2018-08-17] MEDS: METOPROLOL TARTRATE 25 MG TABLET PO SCH ×3 (05:41→17:18)
[2018-08-17] MEDS: RIVAROXABAN 20 MG TABLET PO SCH ×3 (05:41→05:48)
[2018-08-17] MEDS: LOSARTAN 25MG TABLET PO SCH (09:08)
[2018-08-17 13:30] VITALS: BP 174/100
[2018-08-17 18:28] VITALS: BP 172/106
[2018-08-17] MEDS: ACETAMINOPHEN 325 MG TABLET PO PRN (19:53)
[2018-08-17 23:45] VITALS: BP 136/74
[2018-08-18] MEDS ORDERED: QUETIAPINE 25MG TABLET PO ONE (01:00)
[2018-08-18] MEDS: AMPICILLIN/SULBACTAM 3 GM in SODIUM CHLORIDE 0.9% 100 ML IV SCH ×2 (01:09→06:31)
[2018-08-18] MEDS: VANCOMYCIN 2,000 MG in SODIUM CHLORIDE 0.9% 500 ML IV SCH (02:30)
[2018-08-18] MEDS: METOPROLOL TARTRATE 25 MG TABLET PO SCH (06:00)
[2018-08-18] MEDS: LOSARTAN 25MG TABLET PO SCH (08:19)
[2018-08-18] MEDS: RIVAROXABAN 20 MG TABLET PO SCH (08:19)
[2018-08-18 08:20] VITALS: BP 191/116
== END 2018-08-18 10:59 | disposition left against medical advice (07) | DRG 871 ==
LOC: ED 20:55 → EDIP 21:07 → 3NE 22:09
PROVIDERS: ADMIT Internal Medicine; ATTEND Internal Medicine
DX: A41.9 Sepsis, unspecified organism (principal); E43 Unspecified severe protein-calorie malnutrition; G93.41 Metabolic encephalopathy; D68.59 Other primary thrombophilia; I50.42 Chronic combined systolic (congestive) and diastolic (congestive) heart failure; L03.116 Cellulitis of left lower limb; B95.1 Streptococcus, group B, as the cause of diseases classified elsewhere; D64.9 Anemia, unspecified; Z68.36 Body mass index [BMI] 36.0-36.9, adult; F12.10 Cannabis abuse, uncomplicated; F15.10 Other stimulant abuse, uncomplicated; F17.200 Nicotine dependence, unspecified, uncomplicated; F41.1 Generalized anxiety disorder; F43.10 Post-traumatic stress disorder, unspecified; E11.42 Type 2 diabetes mellitus with diabetic polyneuropathy; H91.90 Unspecified hearing loss, unspecified ear; I11.0 Hypertensive heart disease with heart failure; I25.10 Atherosclerotic heart disease of native coronary artery without angina pectoris; I87.2 Venous insufficiency (chronic) (peripheral); J44.9 Chronic obstructive pulmonary disease, unspecified; K21.9 Gastro-esophageal reflux disease without esophagitis; Z53.21 Procedure and treatment not carried out due to patient leaving prior to being seen by health care provider; R32 Unspecified urinary incontinence; Z59.0 Homelessness; Z79.01 Long term (current) use of anticoagulants; Z86.711 Personal history of pulmonary embolism; Z86.718 Personal history of other venous thrombosis and embolism; Z87.442 Personal history of urinary calculi; Z87.820 Personal history of traumatic brain injury; Z91.14 Patient's other noncompliance with medication regimen; Z88.8 Allergy status to other drugs, medicaments and biological substances
CPT/HCPCS: 36415; 71045; 80053; 80061; 80307; 80329; 81001; 82140; 83036; 83605; 83735; 84439; 84443; 85025; 87040; 87070; 87077; 87147; 87181; 87186; 87205; 93005; G0378; J0295; J0696; J3370; G0480; J7030; J7040

== ENCOUNTER 2019-04-25 14:17 | Emergency (ER) | payer MEDICAID ==
[~2019-04-25] VITALS: Ht 172.7 cm; Wt 91.0 kg
[~2019-04-25 14:17] MED LIST changes: -GABA600T2 PO; +GABA600T7 PO; +HYDR12.517 PO; -HYDR12.53 PO
--- NOTE | 2019-04-25 14:25 | NUR ---
NO ANSWER IN LOBBY AT [id number]
[2019-04-25 15:49] LABS: BASOPHILS # (AUTO) 0.04 x10^3/uL (0-0.1); BASOPHILS % (AUTO) 1 % (0-1); EOSINOPHILS # (AUTO) 0.27 x10^3/uL (0-0.4); EOSINOPHILS % (AUTO) 4 % (1-7); LYMPHOCYTES % (AUTO) 25 % (22-44); MD NO; MEAN CORPUSCULAR HEMOGLOBIN 31.6 pg (27.5-34.5); MEAN CORPUSCULAR HGB CONC 32.2 g/dL (33.2-36.2); MEAN CORPUSCULAR VOLUME 98.1 fL (81-97); MEAN PLATELET VOLUME 8.6 fL (7.4-10.4); MONOCYTES # (AUTO) 0.56 x10^3/uL (0.2-0.8); MONOCYTES % (AUTO) 8 % (2-9); NEUTROPHILS # (AUTO) 4.49 x10^3/uL (1.8-6.8); NEUTROPHILS % (AUTO) 63 % (42-75); PLATELET COUNT 195 x10^3/uL (130-400); RED BLOOD COUNT 4.78 x10^6/uL (4.38-5.82); RED CELL DISTRIBUTION WIDTH 14.6 % (9.4-14.8)
[2019-04-25 15:57] LABS: ALBUMIN 3.6 g/dL (3.4-5.0); ANION GAP 4 mmol/L (5-15); CALCIUM 8.6 mg/dL (8.5-10.1); CHLORIDE 106 mmol/L (98-107)
[2019-04-25 16:00] LABS: ALANINE AMINOTRANSFERASE 97 U/L (12-78); ALKALINE PHOSPHATASE 83 U/L (45-117); BILIRUBIN,TOTAL 0.8 mg/dL (0.2-1.0)
--- NOTE | 2019-04-25 16:00 | NUR ---
LEFT LOWER LEG SWELLING WITH LESION. VASCULAR STUDY BEING PERFORMED AT BEDSIDE
--- NOTE | 2019-04-25 16:37 | NUR ---
WOUND CANDY PACKER USED TO CLEAN WOUND LEFT LOWER EXTREMITY WITH XEROFORM PLACED OVER LESION AND THEN OPTIFOAM DRESSING OVER THAT.
--- NOTE | 2019-04-25 17:45 | NUR ---
PT REFUSED MED ORDERED FOR BP. PROVIDER AWARE. PT GIVEN DISCHARGE PAPERS. PT ANGRY NOT BEING ADMITTED AND CUSSING. SECURITY AT BEDSIDE WHILE EXPLAINING WHY HE IS NOT BEING ADMITTED. WHEN ATTEMPTING TO TALK TO HIM ABOUT GETTING A [employer]EST FIRE FIGHTER TO HELP WITH PRESCRIPTIONS THAT WERE GIVEN WITH DISCHARGE, PT REFUSING. PT TO DISCHARGE WINDOW VIA WHEELCHAIR WITH SECURITY.
[2019-04-25 17:49] VITALS: BP 163/102
== END 2019-04-25 17:52 | disposition home or self-care (01) ==
LOC: ED 17:46
DX: R60.0 Localized edema (principal); I87.2 Venous insufficiency (chronic) (peripheral); I11.0 Hypertensive heart disease with heart failure; I50.9 Heart failure, unspecified; E11.9 Type 2 diabetes mellitus without complications; I25.10 Atherosclerotic heart disease of native coronary artery without angina pectoris
CPT/HCPCS: 36415; 80053; 83605; 83880; 84145; 85025; 87040; 99284

== ENCOUNTER 2019-05-20 22:09 | Inpatient (IN) | payer MEDICAID ==
[~2019-05-20] VITALS: Ht 175.3 cm; Wt 106.1 kg
[2019-05-20 23:10] LABS: BASOPHILS # (AUTO) 0.01 x10^3/uL (0-0.1); BASOPHILS % (AUTO) 0 % (0-1); EOSINOPHILS % (AUTO) 0 % (1-7); LYMPHOCYTES # (AUTO) 1.28 x10^3/uL (1-3.4); LYMPHOCYTES % (AUTO) 10 % (22-44); MD NO; MEAN CORPUSCULAR HEMOGLOBIN 31.7 pg (27.5-34.5); MEAN CORPUSCULAR HGB CONC 33.2 g/dL (33.2-36.2); MEAN CORPUSCULAR VOLUME 95.5 fL (81-97); MEAN PLATELET VOLUME 9.2 fL (7.4-10.4); MONOCYTES # (AUTO) 0.41 x10^3/uL (0.2-0.8); MONOCYTES % (AUTO) 3 % (2-9); NEUTROPHILS # (AUTO) 11.81 x10^3/uL (1.8-6.8); NEUTROPHILS % (AUTO) 87 % (42-75); PLATELET COUNT 205 x10^3/uL (130-400); RED BLOOD COUNT 5.57 x10^6/uL (4.38-5.82); RED CELL DISTRIBUTION WIDTH 15.1 % (9.4-14.8)
--- NOTE | 2019-05-20 23:14 | NUR ---
PT WAS INCONTINENT OF STOOL, D/C'D OWN IV, CLEANED AND DRESSING PLACED OVER IV SITE. TECH TO ROOM FOR EKG, PT REMAINS DIFFICULT HISTORIAN, FOLLOWS DIRECTION
[2019-05-20 23:22] LABS: ALBUMIN 4.3 g/dL (3.4-5.0); CALCIUM 10.2 mg/dL (8.5-10.1); CHLORIDE 105 mmol/L (98-107)
[2019-05-20 23:26] LABS: ALANINE AMINOTRANSFERASE 49 U/L (12-78); ALKALINE PHOSPHATASE 83 U/L (45-117); BILIRUBIN,TOTAL 0.8 mg/dL (0.2-1.0); CREATININE 6.64 mg/dL (0.7-1.3); TOTAL PROTEIN 9.5 g/dL (6.4-8.2)
[2019-05-20 23:44] LABS: ANION GAP 17 mmol/L (5-15)
[2019-05-21] MEDS ORDERED: SODIUM CHLORIDE 0.9% 1,000 ML IV SCH (00:19)
[2019-05-21] MEDS ORDERED: hydrALAzine 20 MG/ML, 1ML IVPush PRN (00:30)
[2019-05-21] MEDS ORDERED: SODIUM CHLORIDE 0.9% 1,000ML IVBOLUS ONE (00:30)
[2019-05-21] MEDS ORDERED: SODIUM CHLORIDE FLUSH 10ML SYR IVF ONE (00:30)
--- NOTE | 2019-05-21 00:36 | NUR ---
BEDSIDE US IN PROGRESS, IV FLUIDS INFUSING AT THIS TIME. REMAINS NSR MONITOR WITHOUT ECTOPY. AWAIT ROOM ASSIGNMENT AND [place] PLACEMENT, INITITAL ATTEMPT UNSECCESSFUL
[2019-05-21] MEDS ORDERED: CEFTRIAXONE PMX 1GM/50ML 50 ML ONE (00:40)
[2019-05-21] MEDS: CEFTRIAXONE PMX 1GM/50ML 50 ML IV SCH (00:44)
--- NOTE | 2019-05-21 00:44 | NUR ---
NO BLOOD CULTURES PER MD. ABX INFUSING PER ORDER. AWAIT ROOM ASSIGNMENT
[2019-05-21 01:42] LABS: CULTURE INDICATED? YES; MICROSCOPIC INDICATED
[2019-05-21 01:56] LABS: AMPHETAMINE SCREEN, URINE Positive (Negative); BARBITURATE SCREEN, URINE Negative (Negative); BENZODIAZEPINE SCREEN, URINE Negative (Negative); CANNABINOID SCREEN, URINE Positive (Negative); COCAINE SCREEN, URINE Negative (Negative); METHADONE SCREEN, URINE Negative (Negative); OPIATE SCREEN, URINE Positive (Negative)
[2019-05-21] MEDS: HEPARIN 5,000 UNITS/ML, 1ML SQ SCH ×2 (02:12→08:30)
[2019-05-21] MEDS: ACETAMINOPHEN 325 MG TABLET PO PRN ×2 (02:55→20:38)
[2019-05-21 03:00] VITALS: BP 134/81
[2019-05-21] MEDS: SODIUM POLYSTYRENE SULFONATE ORAL SUSP PO ONE ×2 (06:00→06:27)
[2019-05-21 07:15] VITALS: BP 112/73
[2019-05-21 08:19] LABS: ANION GAP 13 mmol/L (5-15); CALCIUM 8.8 mg/dL (8.5-10.1); CHLORIDE 103 mmol/L (98-107); CREATININE 6.88 mg/dL (0.7-1.3)
[2019-05-21] MEDS ORDERED: DOXYCYCLINE 100MG TABLET ONE (09:19)
[2019-05-21] MEDS ORDERED: FUROSEMIDE 40 MG/4 ML ONE (09:22)
[2019-05-21] MEDS: DOXYCYCLINE 100MG CAP PO SCH ×2 (09:29→20:38)
[2019-05-21] MEDS ORDERED: FUROSEMIDE 40 MG/4 ML IV ONE (09:30)
[2019-05-21] MEDS ORDERED: DO NOT GIVE MC ONE (11:30)
[2019-05-21] MEDS ORDERED: HEPARIN 25,000 UNITS/500ML PMX 500 ML IV PRN (12:00)
[2019-05-21 12:28] VITALS: BP 115/72
[2019-05-21] MEDS: HEPARIN 5,000 UNITS/ML, 1ML IV PRN ×2 (12:43→20:38)
[2019-05-21] MEDS ORDERED: OMEPRAZOLE 20 MG CAPSULE.DR PO ONE (13:00)
[2019-05-21 21:24] VITALS: BP 117/69
[2019-05-22] MEDS: CEFTRIAXONE PMX 1GM/50ML 50 ML IV SCH (01:41)
[2019-05-22 01:49] LABS: URIC ACID,URINE RANDOM 25.9 mg/dL
[2019-05-22 02:06] VITALS: BP 105/70
[2019-05-22 03:30] LABS: BASOPHILS # (AUTO) 0.04 x10^3/uL (0-0.1); BASOPHILS % (AUTO) 0 % (0-1); EOSINOPHILS # (AUTO) 0.24 x10^3/uL (0-0.4); EOSINOPHILS % (AUTO) 2 % (1-7); LYMPHOCYTES # (AUTO) 2.59 x10^3/uL (1-3.4); LYMPHOCYTES % (AUTO) 26 % (22-44); MD NO; MEAN CORPUSCULAR HEMOGLOBIN 31.8 pg (27.5-34.5); MEAN CORPUSCULAR HGB CONC 32.5 g/dL (33.2-36.2); MEAN CORPUSCULAR VOLUME 97.8 fL (81-97); MEAN PLATELET VOLUME 8.7 fL (7.4-10.4); MONOCYTES # (AUTO) 0.79 x10^3/uL (0.2-0.8); MONOCYTES % (AUTO) 8 % (2-9); NEUTROPHILS % (AUTO) 64 % (42-75); PLATELET COUNT 168 x10^3/uL (130-400); RED BLOOD COUNT 4.92 x10^6/uL (4.38-5.82); RED CELL DISTRIBUTION WIDTH 15.1 % (9.4-14.8)
[2019-05-22 03:42] LABS: ALBUMIN 3.3 g/dL (3.4-5.0); ANION GAP 10 mmol/L (5-15); CALCIUM 8.2 mg/dL (8.5-10.1); CHLORIDE 100 mmol/L (98-107)
[2019-05-22 03:45] LABS: ALANINE AMINOTRANSFERASE 39 U/L (12-78); ALKALINE PHOSPHATASE 68 U/L (45-117); BILIRUBIN,TOTAL 0.6 mg/dL (0.2-1.0); CREATININE 4.75 mg/dL (0.7-1.3); TOTAL PROTEIN 7.7 g/dL (6.4-8.2)
[2019-05-22] MEDS: HEPARIN 5,000 UNITS/ML, 1ML IV PRN (03:59)
[2019-05-22] MEDS ORDERED: DOXYCYCLINE 100MG TABLET ONE (08:27)
[2019-05-22] MEDS ORDERED: FUROSEMIDE 40 MG/4 ML IV ONE (08:47)
[2019-05-22] MEDS ORDERED: DOXYCYCLINE 100MG TABLET PO SCH (09:00)
[2019-05-22] MEDS ORDERED: LORazepam 2 MG/ML, 1ML IVPush PRN (09:00)
[2019-05-22] MEDS ORDERED: CEFTRIAXONE PMX 1GM/50ML 50 ML IV SCH (09:00)
[2019-05-22] MEDS ORDERED: DOXY100T PO (09:34)
[2019-05-22] MEDS ORDERED: FUROSEMIDE 40 MG/4 ML IV SCH (17:00)
== END 2019-05-22 09:34 | disposition left against medical advice (07) | DRG 871 ==
LOC: ED 23:07 → EDIP 05-21 00:04 → 5SO 05-21 01:51
PROVIDERS: ADMIT Family Medicine; ATTEND Family Medicine
DX: A41.9 Sepsis, unspecified organism (principal); G93.41 Metabolic encephalopathy; N17.0 Acute kidney failure with tubular necrosis; I50.43 Acute on chronic combined systolic (congestive) and diastolic (congestive) heart failure; D68.69 Other thrombophilia; I13.0 Hypertensive heart and chronic kidney disease with heart failure and stage 1 through stage 4 chronic kidney disease, or unspecified chronic kidney disease; I82.513 Chronic embolism and thrombosis of femoral vein, bilateral; I82.531 Chronic embolism and thrombosis of right popliteal vein; L03.116 Cellulitis of left lower limb; Z53.21 Procedure and treatment not carried out due to patient leaving prior to being seen by health care provider; N18.2 Chronic kidney disease, stage 2 (mild); E11.22 Type 2 diabetes mellitus with diabetic chronic kidney disease; E11.65 Type 2 diabetes mellitus with hyperglycemia; E86.0 Dehydration; E87.5 Hyperkalemia; F12.10 Cannabis abuse, uncomplicated; F15.90 Other stimulant use, unspecified, uncomplicated; F17.210 Nicotine dependence, cigarettes, uncomplicated; F41.1 Generalized anxiety disorder; F43.10 Post-traumatic stress disorder, unspecified; E11.42 Type 2 diabetes mellitus with diabetic polyneuropathy; G89.29 Other chronic pain; M19.90 Unspecified osteoarthritis, unspecified site; H91.90 Unspecified hearing loss, unspecified ear; I25.10 Atherosclerotic heart disease of native coronary artery without angina pectoris; I87.2 Venous insufficiency (chronic) (peripheral); J44.9 Chronic obstructive pulmonary disease, unspecified; K21.9 Gastro-esophageal reflux disease without esophagitis; Z59.0 Homelessness; Z86.711 Personal history of pulmonary embolism; Z87.442 Personal history of urinary calculi; Z87.820 Personal history of traumatic brain injury; Z91.14 Patient's other noncompliance with medication regimen; Z91.19 Patient's noncompliance with other medical treatment and regimen
CPT/HCPCS: 36415; 71045; 76770; 80048; 80053; 80074; 80307; 81001; 82043; 82570; 83690; 83735; 84100; 84156; 84560; 85025; 85520; 86038; 86160; 86162; 87086; 87521; 87806; 93005; 93306; 93970; 99291; G0378; J0696; J1644; J1940; G0475; J7030

== ENCOUNTER 2019-12-20 17:22 | Emergency (ER) | payer MEDICAID ==
[~2019-12-20] VITALS: Ht 167.6 cm; Wt 100.0 kg
[~2019-12-20 17:22] MED LIST changes: +AMLO5TAB4 PO; +DOXY100T PO; +LINE600T15 PO; +RANI-467 PO; -RANI150T23 PO
[2019-12-20 17:35] VITALS: BP 201/100
--- NOTE | 2019-12-20 18:41 | NUR ---
OIL WINTERIZER: FROM LOBBY TO ROOM AT THIS TIME
[2019-12-20] MEDS ORDERED: SULFAMETH./TRIMETHOPRIM DS 800MG/160MG TABLET PO ONE (19:00)
[2019-12-20] MEDS ORDERED: IBUPROFEN 800 MG TABLET PO ONE (19:00)
[2019-12-20] MEDS ORDERED: CEPHALEXIN 500 MG CAPSULE PO ONE (19:00)
[2019-12-20] MEDS ORDERED: CEPHALEXIN 500 MG CAPSULE ONE (19:27)
[2019-12-20] MEDS ORDERED: IBUPROFEN 200 MG TABLET ONE (19:28)
[2019-12-20] MEDS ORDERED: SULFAMETH./TRIMETHOPRIM DS 800MG/160MG TABLET ONE (19:28)
[2019-12-20 19:29] LABS: ANION GAP 7 mmol/L (5-15); CALCIUM 8.6 mg/dL (8.5-10.1); CHLORIDE 106 mmol/L (98-107)
[2019-12-20 19:31] LABS: CREATININE 1.24 mg/dL (0.7-1.3)
[2019-12-20 19:35] LABS: BASOPHILS # (AUTO) 0.02 x10^3/uL (0-0.1); BASOPHILS % (AUTO) 0 % (0-1); EOSINOPHILS % (AUTO) 2 % (1-7); LYMPHOCYTES # (AUTO) 1.38 x10^3/uL (1-3.4); LYMPHOCYTES % (AUTO) 21 % (22-44); MD NO; MEAN CORPUSCULAR HEMOGLOBIN 29.9 pg (27.5-34.5); MEAN CORPUSCULAR HGB CONC 32.7 g/dL (33.2-36.2); MEAN CORPUSCULAR VOLUME 91.3 fL (81-97); MEAN PLATELET VOLUME 8.6 fL (7.4-10.4); MONOCYTES # (AUTO) 0.45 x10^3/uL (0.2-0.8); MONOCYTES % (AUTO) 7 % (2-9); NEUTROPHILS # (AUTO) 4.56 x10^3/uL (1.8-6.8); NEUTROPHILS % (AUTO) 70 % (42-75); PLATELET COUNT 226 x10^3/uL (130-400); RED BLOOD COUNT 4.23 x10^6/uL (4.38-5.82); RED CELL DISTRIBUTION WIDTH 16.6 % (9.4-14.8)
== END 2019-12-21 00:28 | disposition home or self-care (01) ==
LOC: ED 12-21 00:26
DX: L03.115 Cellulitis of right lower limb (principal); L03.116 Cellulitis of left lower limb; I87.8 Other specified disorders of veins; L89.896 Pressure-induced deep tissue damage of other site; F17.200 Nicotine dependence, unspecified, uncomplicated; I10 Essential (primary) hypertension; I25.2 Old myocardial infarction; J45.909 Unspecified asthma, uncomplicated; I25.10 Atherosclerotic heart disease of native coronary artery without angina pectoris
CPT/HCPCS: 36415; 80048; 82040; 85025; 99284

== ENCOUNTER 2020-05-07 18:47 | Emergency (ER) | payer MEDICAID ==
[~2020-05-07 18:47] MED LIST changes: -WARF5TAB PO; +WARF5TAB2 PO
== END 2020-05-07 19:06 | disposition left against medical advice (07) ==
LOC: ED 19:00
DX: R51 Headache (principal); M54.9 Dorsalgia, unspecified; Z53.21 Procedure and treatment not carried out due to patient leaving prior to being seen by health care provider

== ENCOUNTER 2021-06-30 10:37 | Inpatient (IN) | payer MEDICAID, OTHER ==
[~2021-06-30] VITALS: Ht 175.3 cm; Wt 96.2 kg
[~2021-06-30 10:37] MED LIST changes: +OLAN5TAB69 PO; -OLAN5TAB9 PO; -OXYC-302 PO; -OXYC-307 PO; +OXYC-380 PO; +OXYC1TAB14 PO
[2021-06-30] MEDS ORDERED: SODIUM CHLORIDE FLUSH 10ML SYR IVF ONE (11:00)
--- NOTE | 2021-06-30 11:00 | NUR ---
HUE RAMIREZUTAlex FROM [facility]. PT WITH OPEN WOUND TO LLE. SENT HERE BY RN FROM [facility] FOR POSSIBLE ABX
[2021-06-30 11:16] LABS: HCT (SEDRATE) 49.3 % (39.2-51.8)
[2021-06-30 11:28] LABS: BASOPHILS % (AUTO) 1 % (0-1); EOSINOPHILS % (AUTO) 0 % (1-7); LYMPHOCYTES % (AUTO) 18 % (22-44); MEAN CORPUSCULAR HEMOGLOBIN 32.1 pg (27.5-34.5); MEAN CORPUSCULAR HGB CONC 34.4 g/dL (33.2-36.2); MEAN PLATELET VOLUME 8.7 fL (7.4-10.4); MONOCYTES % (AUTO) 6 % (2-9); NEUTROPHILS % (AUTO) 75 % (42-75); PLATELET COUNT 196 x10^3/uL (130-400); RED CELL DISTRIBUTION WIDTH 15.3 % (9.4-14.8)
[2021-06-30 11:30] LABS: ALANINE AMINOTRANSFERASE 46 U/L (12-78); ALBUMIN 3.3 g/dL (3.4-5.0); ANION GAP 10 mmol/L (5-15); CALCIUM 9.1 mg/dL (8.5-10.1); CHLORIDE 104 mmol/L (98-107); CREATININE 1.32 mg/dL (0.7-1.3)
[2021-06-30 11:32] LABS: ALKALINE PHOSPHATASE 95 U/L (45-117); BILIRUBIN,TOTAL 1.2 mg/dL (0.2-1.0); TOTAL PROTEIN 7.9 g/dL (6.4-8.2)
[2021-06-30 12:42] LABS: TROPONIN I 0.061 ng/mL (0.000-0.045)
[2021-06-30] MEDS ORDERED: ASPIRIN 81 MG TABLET CHEW PO ONE (13:00)
[2021-06-30] MEDS ORDERED: FUROSEMIDE 40 MG/4 ML IV ONE (13:00)
[2021-06-30] MEDS ORDERED: NITROGLYCERIN SINGLE TAB 0.4 MG SL PRN (13:00)
[2021-06-30] MEDS ORDERED: NITROGLYCERIN OINT 2%, 1GM TP ONE ×2 (13:00→13:21)
[2021-06-30] MEDS ORDERED: ASPIRIN 81 MG TABLET CHEW ONE (13:03)
[2021-06-30] MEDS ORDERED: FUROSEMIDE 40 MG/4 ML ONE (13:03)
--- NOTE | 2021-06-30 13:28 | NUR ---
BP ELEVATED 186/126 ER MD AWARE, ORDERS RECIEVED. PIV INITIATED. PT MEDICATED PER MAR
[2021-06-30] MEDS ORDERED: NITROGLYCERIN SINGLE TAB 0.4 MG SL ONE (13:32)
[2021-06-30] MEDS ORDERED: OMNIPAQUE 350 MG/ML, 75ML BOTTLE ONE (14:15)
[2021-06-30] MEDS ORDERED: ONDANSETRON 2MG/ML, 2ML IVPush PRN (14:30)
[2021-06-30] MEDS ORDERED: morphine SULFATE 10 MG/ML, 1ML IVPush PRN (14:30)
[2021-06-30] MEDS ORDERED: ONDANSETRON ODT 4 MG PO PRN (14:30)
--- NOTE | 2021-06-30 14:32 | NUR ---
PT BACK FROM CT, GUARD REMAINS AT BEDSIDE. BP LOWERED 170/100
--- NOTE | 2021-06-30 15:18 | NUR ---
REPORT GIVEN TO RECDEXTER MCQUEEN
[2021-06-30 15:22] LABS: TROPONIN I 0.048 ng/mL (0.000-0.045)
[2021-06-30] MEDS ORDERED: LORazepam 1MG TABLET PO PRN ×4 (17:00)
[2021-06-30] MEDS ORDERED: LORazepam 2 MG/ML, 1ML IV PRN ×4 (17:00)
[2021-06-30] MEDS ORDERED: LORazepam 0.5MG TABLET PO PRN (17:00)
[2021-06-30] MEDS: HEPARIN 5,000 UNITS/ML, 1ML SQ SCH (18:01)
[2021-06-30] MEDS: CARVEDILOL 6.25 MG TABLET PO SCH (18:01)
[2021-06-30 19:26] LABS: AMPHETAMINE SCREEN, URINE Negative (Negative); BARBITURATE SCREEN, URINE Negative (Negative); BENZODIAZEPINE SCREEN, URINE Negative (Negative); CANNABINOID SCREEN, URINE Positive (Negative); COCAINE SCREEN, URINE Negative (Negative); METHADONE SCREEN, URINE Negative (Negative); OPIATE SCREEN, URINE Negative (Negative)
[2021-06-30 19:49] VITALS: BP 181/124
[2021-06-30] MEDS: ATORVASTATIN 40 MG TABLET PO SCH (19:54)
[2021-06-30 20:31] LABS: TROPONIN I 0.045 ng/mL (0.000-0.045)
[2021-06-30] MEDS: LORazepam 2 MG/ML, 1ML IV PRN (22:19)
[2021-06-30] MEDS ORDERED: hydrALAzine 20 MG/ML, 1ML IV PRN (23:30)
[2021-06-30] MEDS ORDERED: LABETALOL 5MG/ML, 20ML IVPush PRN (23:30)
[2021-06-30 23:51] VITALS: BP 169/110
[2021-07-01 01:32] VITALS: BP 185/117
[2021-07-01] MEDS: HEPARIN 5,000 UNITS/ML, 1ML SQ SCH ×3 (01:45→17:01)
[2021-07-01] MEDS: LORazepam 2 MG/ML, 1ML IV PRN (02:06)
[2021-07-01] MEDS: CARVEDILOL 6.25 MG TABLET PO SCH ×2 (06:18→16:58)
[2021-07-01] MEDS: ASPIRIN 325 MG TABLET PO SCH (06:18)
[2021-07-01 08:41] LABS: ANION GAP 9 mmol/L (5-15); CALCIUM 9.3 mg/dL (8.5-10.1); CHLORIDE 101 mmol/L (98-107)
[2021-07-01 08:44] LABS: BASOPHILS % (AUTO) 0 % (0-1); EOSINOPHILS % (AUTO) 2 % (1-7); LYMPHOCYTES % (AUTO) 22 % (22-44); MEAN CORPUSCULAR HEMOGLOBIN 31.4 pg (27.5-34.5); MEAN CORPUSCULAR HGB CONC 33.5 g/dL (33.2-36.2); MEAN PLATELET VOLUME 8.3 fL (7.4-10.4); MONOCYTES % (AUTO) 9 % (2-9); NEUTROPHILS % (AUTO) 67 % (42-75); PLATELET COUNT 212 x10^3/uL (130-400); RED BLOOD COUNT 5.29 x10^6/uL (4.38-5.82); RED CELL DISTRIBUTION WIDTH 15.1 % (9.4-14.8)
[2021-07-01 08:54] VITALS: BP 112/110
[2021-07-01] MEDS: LISINOPRIL 20 MG TABLET PO SCH (09:00)
[2021-07-01 16:58] VITALS: BP 158/116
[2021-07-01 20:00] VITALS: BP_SYST 149; BP_DIAS 94; BP_DIAS 97
[2021-07-01] MEDS: ATORVASTATIN 40 MG TABLET PO SCH (22:17)
[2021-07-01] MEDS: ACETAMINOPHEN 325 MG TABLET PO PRN (22:17)
[2021-07-02] MEDS: HEPARIN 5,000 UNITS/ML, 1ML SQ SCH ×3 (00:57→17:10)
[2021-07-02 00:58] VITALS: BP 164/119
[2021-07-02] MEDS ORDERED: CARVEDILOL 3.125 MG TABLET PO PRN ×2 (01:30→04:00)
[2021-07-02] MEDS: ASPIRIN 325 MG TABLET PO SCH (06:12)
[2021-07-02] MEDS: CARVEDILOL 6.25 MG TABLET PO SCH (06:12)
[2021-07-02 09:42] VITALS: BP 160/106
[2021-07-02] MEDS: LISINOPRIL 20 MG TABLET PO SCH ×2 (09:43→19:49)
[2021-07-02] MEDS: AMLODIPINE 5 MG TABLET PO SCH ×2 (09:44→19:49)
[2021-07-02] MEDS: PREGABALIN 50 MG CAP PO SCH ×2 (09:44→19:48)
[2021-07-02] MEDS: ACETAMINOPHEN 325 MG TABLET PO PRN (11:50)
[2021-07-02 15:04] VITALS: BP 124/85
[2021-07-02] MEDS: DIAZEPAM 5 MG TABLET PO SCH ×2 (15:12→19:48)
[2021-07-02] MEDS: OXYcodone IR 5MG TABLET PO PRN (18:36)
[2021-07-02 19:35] VITALS: BP 147/53
[2021-07-02] MEDS: ATORVASTATIN 40 MG TABLET PO SCH (19:48)
[2021-07-03 00:50] VITALS: BP 165/108
[2021-07-03 01:44] LABS: MICROSCOPIC AUTO
[2021-07-03] MEDS: HEPARIN 5,000 UNITS/ML, 1ML SQ SCH ×3 (01:52→17:07)
[2021-07-03] MEDS: DIAZEPAM 5 MG TABLET PO SCH ×4 (04:01→20:40)
[2021-07-03] MEDS: ASPIRIN 81 MG TABLET EC PO SCH (05:22)
[2021-07-03 06:12] LABS: ANION GAP 7 mmol/L (5-15); CALCIUM 8.9 mg/dL (8.5-10.1); CHLORIDE 105 mmol/L (98-107)
[2021-07-03 06:13] LABS: CREATININE 1.17 mg/dL (0.7-1.3)
[2021-07-03 07:35] VITALS: BP 144/80
[2021-07-03] MEDS: AMLODIPINE 10 MG TAB PO SCH (08:42)
[2021-07-03] MEDS: LISINOPRIL 20 MG TABLET PO SCH ×2 (08:43→20:40)
[2021-07-03] MEDS: PREGABALIN 50 MG CAP PO SCH ×2 (08:43→20:40)
[2021-07-03] MEDS: THIAMINE 100MG TABLET PO SCH (08:43)
[2021-07-03 12:43] VITALS: BP 164/96
[2021-07-03 17:08] VITALS: BP 147/96
[2021-07-03 20:38] VITALS: BP 130/101
[2021-07-03] MEDS: ATORVASTATIN 40 MG TABLET PO SCH (20:40)
[2021-07-04] MEDS: DIAZEPAM 5 MG TABLET PO SCH ×3 (02:45→20:07)
[2021-07-04] MEDS: HEPARIN 5,000 UNITS/ML, 1ML SQ SCH ×3 (02:45→20:07)
[2021-07-04 02:48] VITALS: BP 129/87
[2021-07-04] MEDS: ASPIRIN 81 MG TABLET EC PO SCH (05:51)
[2021-07-04] MEDS: THIAMINE 100MG TABLET PO SCH (08:36)
[2021-07-04] MEDS: ISOSORBIDE MONONITRATE ER 30 MG TABLET PO SCH (08:37)
[2021-07-04] MEDS: SPIRONOLACTONE 25 MG TABLET PO SCH (08:37)
[2021-07-04] MEDS: PREGABALIN 50 MG CAP PO SCH ×2 (08:37→20:07)
[2021-07-04] MEDS: LISINOPRIL 20 MG TABLET PO SCH ×2 (08:37→20:07)
[2021-07-04] MEDS: AMLODIPINE 10 MG TAB PO SCH (08:37)
[2021-07-04 08:38] VITALS: BP 163/104
[2021-07-04] MEDS ORDERED: FUROSEMIDE 40 MG TABLET PO SCH (09:00)
[2021-07-04 12:06] VITALS: BP 127/78
[2021-07-04] MEDS: OXYcodone IR 5MG TABLET PO PRN (14:09)
[2021-07-04 18:23] VITALS: BP 118/77
[2021-07-04 19:37] VITALS: BP 106/68
[2021-07-04] MEDS: ATORVASTATIN 40 MG TABLET PO SCH (20:07)
[2021-07-04] MEDS ORDERED: OLANZAPINE 5 MG TABLET PO SCH (21:00)
[2021-07-04 21:19] VITALS: BP 96/53
[2021-07-05 00:15] VITALS: BP 112/68
[2021-07-05] MEDS: HEPARIN 5,000 UNITS/ML, 1ML SQ SCH (03:36)
[2021-07-05 05:09] LABS: ANION GAP 4 mmol/L (5-15); CALCIUM 9.2 mg/dL (8.5-10.1); CHLORIDE 104 mmol/L (98-107); CREATININE 1.43 mg/dL (0.7-1.3)
[2021-07-05] MEDS: ASPIRIN 81 MG TABLET EC PO SCH (05:55)
[2021-07-05] MEDS ORDERED: PREG50CA58 PO (07:57)
[2021-07-05] MEDS ORDERED: OLAN5TAB69 PO (07:57)
[2021-07-05] MEDS ORDERED: ISOS30TA8 PO (07:57)
[2021-07-05] MEDS ORDERED: ASPI81TA45 PO (07:57)
[2021-07-05] MEDS ORDERED: SPIR25TA PO (07:57)
[2021-07-05] MEDS ORDERED: ATOR40TA78 PO (07:57)
[2021-07-05] MEDS ORDERED: THIA100T67 PO (07:57)
[2021-07-05] MEDS: ISOSORBIDE MONONITRATE ER 30 MG TABLET PO SCH (08:19)
[2021-07-05] MEDS: THIAMINE 100MG TABLET PO SCH (08:19)
[2021-07-05] MEDS: SPIRONOLACTONE 25 MG TABLET PO SCH (08:20)
[2021-07-05] MEDS: PREGABALIN 50 MG CAP PO SCH (08:20)
[2021-07-05] MEDS ORDERED: LISINOPRIL 20 MG TABLET PO SCH (09:00)
[2021-07-05] MEDS ORDERED: AMLODIPINE 5 MG TABLET PO SCH (09:00)
[2021-07-05] MEDS ORDERED: FUROSEMIDE 20 MG TABLET PO SCH (09:00)
[2021-07-05 09:21] VITALS: BP 127/80
== END 2021-07-05 09:49 | DRG 198 ==
LOC: ED 12:00 → OBSVTOIN 14:27 → EDIP 14:27 → INTOOBSV 14:27 → 5SO 15:36
PROVIDERS: ADMIT Internal Medicine; ATTEND Hospitalist
DX: R07.89 Other chest pain (principal); I25.10 Atherosclerotic heart disease of native coronary artery without angina pectoris; G93.40 Encephalopathy, unspecified; N17.9 Acute kidney failure, unspecified; I82.502 Chronic embolism and thrombosis of unspecified deep veins of left lower extremity; I50.42 Chronic combined systolic (congestive) and diastolic (congestive) heart failure; I13.0 Hypertensive heart and chronic kidney disease with heart failure and stage 1 through stage 4 chronic kidney disease, or unspecified chronic kidney disease; I83.028 Varicose veins of left lower extremity with ulcer other part of lower leg; L03.116 Cellulitis of left lower limb; Z86.711 Personal history of pulmonary embolism; E11.22 Type 2 diabetes mellitus with diabetic chronic kidney disease; E11.69 Type 2 diabetes mellitus with other specified complication; Z86.14 Personal history of Methicillin resistant Staphylococcus aureus infection; F10.239 Alcohol dependence with withdrawal, unspecified; F12.90 Cannabis use, unspecified, uncomplicated; F15.90 Other stimulant use, unspecified, uncomplicated; F17.210 Nicotine dependence, cigarettes, uncomplicated; N18.2 Chronic kidney disease, stage 2 (mild); Z53.20 Procedure and treatment not carried out because of patient's decision for unspecified reasons; Z59.0 Homelessness; Z76.5 Malingerer [conscious simulation]; Z79.82 Long term (current) use of aspirin; Z87.820 Personal history of traumatic brain injury; Z91.14 Patient's other noncompliance with medication regimen; J44.9 Chronic obstructive pulmonary disease, unspecified; Z88.8 Allergy status to other drugs, medicaments and biological substances; Z20.822 Contact with and (suspected) exposure to COVID-19; I87.2 Venous insufficiency (chronic) (peripheral); H91.90 Unspecified hearing loss, unspecified ear; M86.8X6 Other osteomyelitis, lower leg; L97.829 Non-pressure chronic ulcer of other part of left lower leg with unspecified severity
CPT/HCPCS: 36415; 70450; 71045; 71275; 80048; 80053; 80307; 81001; 82140; 83880; 84443; 84484; 85025; 85651; 86140; 87040; 93005; 93306; G0378; J1644; J1940; Q9967; U0005; 92523-GN; J2060; U0003